=== PATIENT | male | born 1980 | race Caucasian/White ===

== ENCOUNTER 2022-03-10 10:25 | Emergency (ER) | payer BC, SELFPAY ==
[2022-03-10 10:32] VITALS: BP 124/79; PULSE 73; RESP 16; TEMP 36.8; O2SAT 99
--- NOTE | 2022-03-10 10:40 | ED.DENTAL ---
HPI - Dental/Oral General Chief complaint: Dental/Oral Stated complaint: Facial Swelling/Toothache History of Present Illness HPI Narrative: 41 year old male presents to [facility] care with complaints of left upper facial pain and swelling with dental pain to the # 14 tooth with hole noted in tooth. Patient has numerous decayed teeth with multiple broken teeth also. Patient states that he has been taking Aleve for his discomfort. Patient reports that he presently doesn't have a dentist has not maintained routine dental care . Patient denies any difficulty with his breathing or any problems with swallowing.,no trismus noted. MD Complaint: tooth pain Location: Tooth # (14) Onset (ago): day(s) (2) Treatment prior to arrival: other (ansaids) Related Data Allergies Allergy/AdvReac Type Severity Reaction Status Date / Time hydrocodone AdvReac Mild Nausea and Verified 03/10/22 10:40 Vomiting codeine AdvReac Nausea and Verified 03/10/22 10:40 Vomiting Review of Systems Review of Systems: CONSTITUTIONAL: Denies fever, chills, or sweats. EYES: Denies visual changes, redness, or discharge. ENT: Denies rhinorrhea, congestion, sore throat, or otalgia.positive for left facial swelling and dental pain CARDIOVASCULAR: Denies chest pain, palpitations, or edema. RESPIRATORY: Denies cough or dyspnea. GASTROINTESTINAL: Denies abdominal pain, nausea, vomiting, or diarrhea. GENITOURINARY: Denies dysuria or hematuria. SKIN: Denies rash or itching. MUSCULOSKELETAL: Denies back pain, joint pain, or myalgia. NEUROLOGIC: Denies headache, numbness, or weakness. PSYCHIATRIC: Denies anxiety or depression. All systems reviewed & are unremarkable except as noted in HPI and below [facility] Past Medical History Medical History (Updated 03/11/22 @ 07:16 by Martha Correa NP) History of dental problems Surgical History Surgical History (Updated 03/11/22 @ 07:10 by Martha Correa NP) No history of previous surgery Social History Social History (Updated 03/11/22 @ 07:07 by Martha Correa NP) Smoking packs per day: 1 Smoking cigarettes per day: 20.0 Smoking status: Current every day smoker Alcohol intake: current Alcohol use details: social Substance use: never Substance use type: does not use Comments At time of signature, agree with nursing past medical, surgical, social and family history. There is no relevant family history pertinent to the presenting complaint Exam Narrative: GENERAL: Well-appearing, well-nourished, and in no acute distress. HEAD: Normocephalic, atraumatic. EYES: PERRLA and EOMI. ENT: Nares clear, no rhinorrhea or epistaxis. Mucous membranes moist..TM's normal with good light reflex, throat pink with no lesions or tonsil swelling, left facial edema noted with pain to #14 tooth with noted hole in molar, numerous teeth noted with caries and some broken teeth, no trismus noted, no Roberto angina. NECK: Supple. no lymphadenopathy CHEST: Clear to auscultation. No respiratory distress.SAO2 99% on room air HEART: Regular rate and rhythm. No murmur heard. Normal peripheral pulses. ABDOMEN: Soft, nontender, nondistended, normal active bowel sounds. EXTREMITIES: Normal range of motion. No edema. SKIN: Warm, dry, no rash. NEURO: No focal deficits. Alert and oriented x3. Course Course Level of Care: Express Care Visit Vital Signs Vital signs: Vital Signs Temperature 36.8 C 03/10/22 10:32 Pulse Rate 73 03/10/22 10:32 Respiratory Rate 16 03/10/22 10:32 Blood Pressure 124/79 03/10/22 10:32 Pulse Oximetry 99 03/10/22 10:32 Oxygen Delivery Room Air 03/10/22 10:32 Temperature 36.8 C 03/10/22 10:32 Pulse Rate 73 03/10/22 10:32 Respiratory Rate 16 03/10/22 10:32 Blood Pressure 124/79 03/10/22 10:32 Pulse Oximetry 99 03/10/22 10:32 Oxygen Delivery Room Air 03/10/22 10:32 MDM - Dental/Oral Differential Diagnosis Differential diagnosis: Likely dental caries, t
== END 2022-03-10 10:59 | disposition home or self-care (01) ==
PROVIDERS: Emergency Provider Registered Nurse
DX: K02.9 Dental caries, unspecified (principal); F17.210 Nicotine dependence, cigarettes, uncomplicated
CPT/HCPCS: 99203; G0463